=== PATIENT | female | born 1995 | race Caucasian/White ===

== ENCOUNTER 2016-04-21 04:32 | Inpatient (IN) | payer OTHER ==
[~2016-04-21] VITALS: Ht 149.9 cm; Wt 78.2 kg
[2016-04-21] MEDS ORDERED: PRENTAB26 PO (04:54)
[2016-04-21 04:58] VITALS: Ht 149.9 cm; Wt 78.2 kg
[2016-04-21] MEDS ORDERED: LACTATED RINGER'S 1000ML 1,000 ML IV PRN (05:20)
[2016-04-21 05:49] LABS: HEMATOCRIT 35.6 % (37-47); MEAN CELL VOLUME 90.6 fL (80-100); MEAN CORPUSCULAR HGB CONC 34.3 g/dl (32-36); MEAN PLATELET VOLUME 10.2 fL (7.4-10.4); PLATELET COUNT 156 K/uL (130-400); RED BLOOD COUNT 3.93 M/uL (4.2-5.4); WHITE BLOOD COUNT 8.23 K/uL (4.8-10.8)
[2016-04-21] MEDS ORDERED: BUPIVACAINE 0.25% 30 ML VIAL ONE (10:24)
[2016-04-21] MEDS ORDERED: EpHEDrine SULFATE INJ 50 MG/ML AMP ONE (10:24)
[2016-04-21] MEDS ORDERED: FENTANYL 2MCG/ML ROPIV 1.25MG/ML 100ML BAG EPI ONE (10:25)
[2016-04-21] MEDS ORDERED: FENTANYL CITRATE INJ 50 MCG/1 ML 2 ML VIAL ONE (10:26)
[2016-04-21] MEDS: LACTATED RINGER'S 1000ML 1,000 ML IV SCH ×3 (10:27→20:39)
[2016-04-21] MEDS ORDERED: NALOXONE HCL INJ 1 MG in SODIUM CHLORIDE 0.9% 1000ML 1,000 ML IV PRN (12:07)
[2016-04-21] MEDS ORDERED: LACTATED RINGER'S 1000ML 500 ML IV PRN ×2 (12:07→16:15)
[2016-04-21] MEDS ORDERED: DiphenhydrAMINE HCL 50 MG/ML VIAL IV PRN (12:15)
[2016-04-21] MEDS ORDERED: NALOXONE HCL INJ 0.4 MG/1 ML VIAL/CARP IV PRN (12:15)
[2016-04-21] MEDS ORDERED: EpHEDrine SULFATE INJ 50 MG/ML AMP IV PRN (12:15)
[2016-04-21] MEDS ORDERED: ONDANSETRON INJ 2 MG/ML 2 ML VIAL IV PRN (12:15)
[2016-04-21] MEDS ORDERED: NALBUPHINE HCL INJ 10 MG/ML AMP IV PRN (12:15)
[2016-04-21] MEDS ORDERED: OXYTOCIN 30 UNITS/500ML NSS IV PRN (16:15)
[2016-04-21] MEDS: FENTANYL 2MCG/ML ROPIV 1.25MG/ML 100ML BAG EPI PRN ×2 (18:54→19:51)
[2016-04-22] VITALS (16 sets, daily range): BP systolic 94–104; BP diastolic 61–66; PULSE 85–119; TEMP 36.6–37.5; O2SAT 96–100
[2016-04-22] MEDS: AMPICILLIN IV 2,000 MG in SODIUM CHLOR 0.9% AD-VAN 100ML 100 ML IV SCH ×4 (00:15→17:40)
[2016-04-22] MEDS: LACTATED RINGER'S 1000ML 1,000 ML IV SCH (00:26)
[2016-04-22] MEDS ORDERED: GENTAMICIN CONSULT ACTIVE PRN (01:15)
[2016-04-22] MEDS ORDERED: CITRIC ACID/SODIUM CITRATE 15 ML UDC ONE (01:16)
[2016-04-22] MEDS ORDERED: CEFAZOLIN IV 2,000 MG in DEXTROSE 5% 50ML 50 ML IV STA (01:27)
[2016-04-22] MEDS ORDERED: LIDOCAINE/EPINEPHRINE 2% 1:200,000 20 ML SDV ONE (01:41)
[2016-04-22] MEDS ORDERED: MoRPHine SULFATE PF 1 MG/ML 10 ML AMP/VIAL ONE (01:54)
[2016-04-22] MEDS ORDERED: OXYTOCIN INJ 10 UNITS/ML VIAL ONE (01:54)
[2016-04-22] MEDS ORDERED: ONDANSETRON INJ 2 MG/ML 2 ML VIAL ONE (02:19)
[2016-04-22] MEDS ORDERED: PHENYLEPHRINE 100MCG/ML 5ML SYR ONE (02:20)
[2016-04-22] MEDS ORDERED: LACTATED RINGER'S 1000ML 500 ML IV PRN (03:04)
[2016-04-22] MEDS ORDERED: LACTATED RINGER'S 1000ML 1,000 ML IV SCH (03:04)
[2016-04-22] MEDS ORDERED: NALOXONE HCL INJ 0.08 MG in SYRINGE 1.8 ML IV PRN (03:04)
[2016-04-22] MEDS ORDERED: SODIUM CHLORIDE 0.9% 1000ML 1,000 ML IV PRN (03:04)
[2016-04-22] MEDS ORDERED: NALOXONE HCL INJ 1 MG in SODIUM CHLORIDE 0.9% 1000ML 1,000 ML IV PRN (03:04)
--- NOTE | 2016-04-22 03:04 | Anesthesia Procedure Note ---
Anesthesia Epidural Removal Nt Date & Time Apr 22, 2016 at 03:03 Vital Signs Pain Intensity: 0.0 Notes Mental Status: alert / awake / arousable, participated in evaluation Nausea / Vomiting: adequately controlled Pain: adequately controlled Airway Patency, RR, SpO2: stable & adequate BP & HR: stable & adequate Hydration State: stable & adequate Neuraxial Anesthesia: was administered, sensory block is resolving Anesthetic Complications: no major complications apparent, pt satisfied with anesthetic care Epidural: removed without complications, with tip intact
[2016-04-22] MEDS ORDERED: ONDANSETRON INJ 2 MG/ML 2 ML VIAL IV PRN ×2 (03:15→20:20)
[2016-04-22] MEDS ORDERED: NALOXONE HCL 0.4 MG/1 ML VIAL/CARP IV PRN (03:15)
[2016-04-22] MEDS ORDERED: MAGNESIUM HYDROXIDE SUSP 30 ML UDC PO PRN (03:15)
[2016-04-22] MEDS ORDERED: LANOLIN OINT EXT PRN ×2 (03:15)
[2016-04-22] MEDS ORDERED: ACETAMINOPHEN IV 100 ML IV PRN (03:15)
[2016-04-22] MEDS ORDERED: EpHEDrine SULFATE INJ 50 MG/ML AMP IV PRN (03:15)
[2016-04-22] MEDS ORDERED: NO NARCOTICS OR SEDATIVES SCH (03:15)
[2016-04-22] MEDS ORDERED: NALBUPHINE HCL INJ 10 MG/ML AMP IV PRN (03:15)
[2016-04-22] MEDS ORDERED: HYDROCORTISONE ACETATE 25 MG SUPP PR PRN (03:15)
[2016-04-22] MEDS ORDERED: MoRPHine SULFATE PF 1 MG/ML 10 ML AMP/VIAL EPI PRN (03:15)
[2016-04-22] MEDS ORDERED: BENZOCAINE 20% AER SPR 82.5 GM CAN EXT PRN (03:15)
[2016-04-22] MEDS ORDERED: AMPICILLIN IV 2,000 MG in SODIUM CHLOR 0.9% AD-VAN 100ML 100 ML IV SCH (03:15)
[2016-04-22] MEDS ORDERED: MoRPHine SULFATE 2 MG/ML CARP IV PRN (03:15)
[2016-04-22] MEDS ORDERED: SENNA 8.6 MG TAB PO PRN (03:15)
[2016-04-22] MEDS ORDERED: DiphenhydrAMINE HCL 50 MG/ML VIAL IV PRN ×2 (03:15→20:20)
[2016-04-22] MEDS ORDERED: SUPERCREAM 0.870 % 15GM JAR EXT PRN (03:15)
[2016-04-22] MEDS ORDERED: ACETAMINOPHEN 1000 MG/100 ML IV IV ONE (03:44)
[2016-04-22] MEDS ORDERED: NURSING VERBAL MED ORDER ONE ×2 (04:45→16:30)
[2016-04-22] MEDS ORDERED: MISOPROSTOL 200 MCG TAB PR ONE (04:45)
[2016-04-22] MEDS: GENTAMICIN IV SCH ×3 (04:47→19:55)
[2016-04-22] MEDS: DEXTROSE 5% IV SCH ×3 (04:47→19:55)
[2016-04-22] MEDS: OXYTOCIN INJ 20 UNITS in LACTATED RINGER'S 1000ML 1,000 ML IV SCH ×2 (05:19→14:05)
[2016-04-22] MEDS ORDERED: GENTAMICIN INJ 120 MG in DEXTROSE 5% 100ML 100 ML IV SCH (06:00)
[2016-04-22] MEDS: CLINDAMYCIN IV 900 MG in DEXTROSE 5% ADD-VANTAGE 100ML 100 ML IV SCH ×3 (06:30→22:04)
[2016-04-22 07:02] LABS: HEMATOCRIT 28.2 % (37-47)
--- NOTE | 2016-04-22 07:07 | HISTORY & PHYSICAL EXAMINATION ---
DATE OF ADMISSION: 04/21/2016 HISTORY OF PRESENT ILLNESS: The patient is a 21-year-old, G1, P0, due date 04/17/2016 making her 40 weeks' and 4 days. The patient presented to labor and delivery with possible rupture of membranes on 04/20/2016 at about noon. The patient reported having occasional trickling, but was not sure. She, however, presented to labor and delivery after midnight. Today, she felt the leaking was getting worse. On arrival to labor and delivery she had no shortness of breath, no chills, no fever, no gross rupture of membranes. AmniSure, however, was performed and was found to be positive. The patient was examined by a nurse and found to be 3 cm, 50% effaced, and -2. Decision was made to admit the patient because of a positive AmniSure. heart tracing was category 2. COURSE: Has been unremarkable except for history of chlamydia which was treated with azithromycin. Test of cure on 11/13/2015 was negative. LABORATORIES: Blood type is A positive, antibody negative, rubella immune, GBS negative. PAST MEDICAL HISTORY: The patient has a history of PCOS. PAST SURGICAL HISTORY: None. SOCIAL HISTORY: The patient denied tobacco, drug or alcohol use. ALLERGIES: THE PATIENT IS ALLERGIC TO IBUPROFEN. FAMILY HISTORY: Noncontributory. ASSESSMENT AND PLAN: A 21-year-old G1, P0 with suspected rupture of membranes on 04/20/2016 around noon. Pelvic exam, however, showed patient still had bulging bag . Because of patient's category 2 Tracing and suspected polyhydramnios the decision is made to do artificial rupture of membranes, This was done successfully. Anticipate vaginal delivery. KENYATTA
[2016-04-22] MEDS ORDERED: MISOPROSTOL 200 MCG TAB ONE (07:14)
[2016-04-22] MEDS: DOCUSATE SODIUM 100 MG CAP PO SCH ×2 (07:54→19:56)
[2016-04-22] MEDS: PRENATAL VITAMIN TAB PO SCH (07:55)
[2016-04-22 08:48] LABS: CREATININE 0.66 mg/dl (0.60-1.20)
[2016-04-22] MEDS: SIMETHICONE 80 MG CHEW PO SCH ×4 (08:48→19:56)
--- NOTE | 2016-04-22 10:13 | Pharmacy Progress Note ---
Pharmacy Antibiotic Consult Date of Service: Apr 22, 2016. Pharmacy Dosing Scope Pharmacy is consulted to initiate gentamicin IV dosing therapy, order appropriate labs and adjust drug dose/frequency. Subjective The patient is a 21 year old female admitted on Apr 21, 2016 at 05:22. Objective Height (Feet): 4 Height (Inches): 11.00 Weight (Kilograms): 78.250 Lab Results (24hrs): Laboratory Tests Test 04/22/16 06:51 Creatinine 0.66 mg/dl Micro Results: Item Value Date Time Blood Culture Received 04/22/16324 Blood Pending Blood Culture Received 04/22/16324 Blood Pending Assessment & Plan ASSESSMENT: * Patient is a 21 year-old female who had delivered an today and was diagnosed with chorioamnionitis. * Pharmacy was consulted to dose the gentamicin IV therapy. * Patient is also on clindamycin 900mg IV q8h and ampicillin 2g q6h IV, per physician management. * Goal trough for gentamicin is 0.5-1mcg/ml and goal peak is 4-5mcg/ml. * Calculated half-life to be ~7hrs and Vd to be 0.25L/kg. * BCx2 are pending in the computer. PLAN: GENTAMICIN: * Patient received a loading dose of 90mg IV q8h of gentamicin (~2mg/kg). * Will get a peak level on 04/23 @6am and a trough level on 04/23 @11:30am. * Once levels come back, will adjust dose and interval appropriately. Pharmacy will continue to follow and will adjust dose/frequency as necessary. Thank you
--- NOTE | 2016-04-22 10:20 | OPERATIVE REPORT ---
DATE OF OPERATION: 04/21/2016 DELIVERY NOTE PROCEDURE: Delivery through section. INDICATIONS FOR SURGERY: 1. Chorioamnionitis. 2. Failure to progress. 3. tachycardia. POSTOPERATIVE DIAGNOSES: Same. SURGEON: Samuel Marie MD. INDEPENDENT INSURANCE ADJUSTER: Savita Tejada RN. PROCEDURE: Primary section. ANESTHESIA: Epidural. FINDINGS: Live in occiput anterior presentation with foul smell and discharge, suspected to be chorio. The uterus, adnexa appeared grossly normal. There was no nuchal cord. IV FLUIDS: 750 mL BLOOD LOSS: 700 mL URINE OUTPUT: 300 mL clear urine at the end of the procedure. COMPLICATIONS: None. DRAINS: Stephens catheter. PATHOLOGY: Placenta cultures, placenta and cord gas. PROCEDURE IN DETAIL: The patient was taken to the operating room where she was prepped and draped in normal sterile fashion. A timeout was called. A Pfannenstiel incision was made with a scalpel from the skin to the fascia. Fascia was incised in the midline and extended laterally on both sides. The fascia was sharply dissected off the rectus abdominus muscle. The peritoneum was identified and entered sharply. Once inside the abdomen, an Iam retractor was placed in the abdomen for retraction. Vesicouterine peritoneum was sharply dissected off the lower segment of the uterus. A transverse incision was made on the uterus and extended laterally on both sides using bandage scissors. Infant's head was delivered. Cord was clamped and cut, handed over to the awaiting fur finisher tailor. Other findings of the abdomen are as dictated above. The placenta was manually removed. The uterus was exteriorized and cleared off all clots and debris. The uterus was closed in 2 layers using 0 Vicryl. The first closure was in locking fashion, second closure was in a running fashion. Copious amount of irrigation was used to irrigate the abdomen. The uterus was returned into the abdominal cavity. Peritoneum closed in a running fashion. A [id number] was used to reapproximate the rectus abdominus muscle. The fascia was closed in a running fashion using Vicryl stitch. All instruments were removed from the abdomen prior to this closure and accounted for x2. The subcutaneous space was reapproximated using 2-0 plain and skin was closed with 4-0 Monocryl. All instruments were removed from the abdomen and accounted for x2 prior to the above-mentioned closures. Baby and mother are doing well in recovery. I attest to the content of the Intraoperative Record and any orders documented therein. Any exceptio ns are noted below.
[2016-04-22] MEDS ORDERED: PROMETHAZINE HCL INJ 25 MG in SODIUM CHLORIDE 0.9% 50ML 50 ML IV PRN (20:20)
[2016-04-22] MEDS ORDERED: DC INTRASPINAL MORPHINE SCH (20:20)
[2016-04-22] MEDS: OXYCODONE/ACETAMINOPHEN 5-325 TAB PO PRN (21:12)
[2016-04-23] MEDS: AMPICILLIN IV 2,000 MG in SODIUM CHLOR 0.9% AD-VAN 100ML 100 ML IV SCH ×4 (01:04→17:45)
[2016-04-23] MEDS: OXYCODONE/ACETAMINOPHEN 5-325 TAB PO PRN ×5 (01:14→21:52)
[2016-04-23 03:15] VITALS: BP 102/68; PULSE 106; TEMP 36.8
[2016-04-23] MEDS: DEXTROSE 5% IV SCH ×2 (03:59→12:17)
[2016-04-23] MEDS: GENTAMICIN IV SCH ×2 (03:59→12:17)
[2016-04-23] MEDS: CLINDAMYCIN IV 900 MG in DEXTROSE 5% ADD-VANTAGE 100ML 100 ML IV SCH ×3 (06:17→23:30)
[2016-04-23 06:52] LABS: BASO % 0.1 %; BASO ABS # 0.01 K/uL (0-0.2); COMPLETE YES; EOS % 0.4 %; HEMATOCRIT 26.1 % (37-47); IG% 0.3 %; LYMPH % 6.8 %; LYMPH ABS # 0.84 K/uL (1.2-3.4); MEAN CELL VOLUME 90.3 fL (80-100); MEAN CORPUSCULAR HEMOGLOBIN 31.5 pg (25-34); MEAN CORPUSCULAR HGB CONC 34.9 g/dl (32-36); MEAN PLATELET VOLUME 9.9 fL (7.4-10.4); MONO % 5.4 %; PLATELET COUNT 136 K/uL (130-400); RED BLOOD COUNT 2.89 M/uL (4.2-5.4)
[2016-04-23 07:20] LABS: CREATININE 0.46 mg/dl (0.60-1.20)
[2016-04-23] MEDS: DOCUSATE SODIUM 100 MG CAP PO SCH ×2 (08:02→19:52)
[2016-04-23] MEDS: SIMETHICONE 80 MG CHEW PO SCH ×4 (08:02→19:52)
[2016-04-23] MEDS: PRENATAL VITAMIN TAB PO SCH (08:02)
[2016-04-23 08:05] VITALS: BP 101/67; PULSE 90; TEMP 36.4; O2SAT 100
[2016-04-23] MEDS ORDERED: GENTAMICIN TROUGH ONE (11:30)
[2016-04-23 12:05] VITALS: BP 98/65; PULSE 94; TEMP 36.6
--- NOTE | 2016-04-23 14:15 | Pharmacy Progress Note ---
Pharmacy Antibiotic Prog Note Date of Service: Apr 23, 2016. Subjective: The patient is currently receiving Gentamicin 90 mg IV every 8 hours. The patient is currently on day # 2 of Gentamicin IV therapy. Objective: Height (Feet): 4 Height (Inches): 11.00 Weight (Kilograms): 78.250 Levels: Item Value Date Time Gentamicin Level Peak 2.9 mcg/ml L 04/23/16 0618 Gentamicin Level Trough < 0.20 mcg/ml 04/23/16 1140 Lab Results (24hrs): Laboratory Tests Test 04/23/16 06:18 Creatinine 0.46 mg/dl White Blood Count 12.30 K/uL Red Blood Count 2.89 M/uL Hemoglobin 9.1 g/dL Hematocrit 26.1 % Mean Corpuscular Volume 90.3 fL Mean Corpuscular Hemoglobin 31.5 pg Mean Corpuscular Hemoglobin Concent 34.9 g/dl Platelet Count 136 K/uL Mean Platelet Volume 9.9 fL Neutrophils (%) (Auto) 87.0 % Lymphocytes (%) (Auto) 6.8 % Monocytes (%) (Auto) 5.4 % Eosinophils (%) (Auto) 0.4 % Basophils (%) (Auto) 0.1 % Neutrophils # (Auto) 10.69 K/uL Lymphocytes # (Auto) 0.84 K/uL Monocytes # (Auto) 0.67 K/uL Eosinophils # (Auto) 0.05 K/uL Basophils # (Auto) 0.01 K/uL Micro Results: Item Value Date Time Blood Culture - Preliminary Resulted 04/22/16 0325 Blood NO GROWTH TO DATE. Blood Culture - Preliminary Resulted 04/22/16 0325 Blood NO GROWTH TO DATE. Assessment & Plan: Assessment * 21 y/o F with chorioamnionitis on empiric IV Gentamicin, Clindamycin (not a consult), and Ampicillin (not a consult). * Goal Gentamicin trough level ~1 mcg/mL * Trough level on 04/23 @ 1140 (appropriately drawn) of <0.2 mcg/mL is subtherapeutic. Peak level on 04/23 @ 0618 (appropriately drawn) of 2.9 mcg/mL is also subtherapeutic (goal peak 4-5 mcg/mL). Patient has great renal function that appears to be at baseline. She is clearing the drug rapidly. Will increase the dose by ~30% and also shorten the dosing interval to target a higher trough level. Plan * Increase Gentamicin to 120mg (~2.1mg/kg based on adjusted BW) IV q6, started earlier due to low peak and trough levels and also given severity of indication for antibiotics * Trough level ordered for 04/24 @ 0930 (prior to the 4th dose and therefore should be reflective of steady state) Pharmacy will continue to follow and will adjust dose/frequency as necessary. Thank you
[2016-04-23] MEDS: GENTAMICIN INJ 120 MG in DEXTROSE 5% 100ML 100 ML IV SCH ×2 (16:06→21:34)
[2016-04-23] MEDS ORDERED: ACETAMINOPHEN IV 100 ML IV SCH (16:30)
[2016-04-23 17:00] VITALS: BP 98/61; PULSE 98; TEMP 36.6
[2016-04-23 19:50] VITALS: BP 108/65; PULSE 112; TEMP 36.5; O2SAT 100
[2016-04-23] MEDS ORDERED: BISACODYL 5 MG TABEC PO ONE (22:00)
[2016-04-24] MEDS: AMPICILLIN IV 2,000 MG in SODIUM CHLOR 0.9% AD-VAN 100ML 100 ML IV SCH ×2 (00:36→05:54)
[2016-04-24] MEDS ORDERED: BISACODYL 10 MG SUPP PR PRN (03:15)
[2016-04-24] MEDS: OXYCODONE/ACETAMINOPHEN 5-325 TAB PO PRN ×5 (03:28→19:26)
[2016-04-24] MEDS: GENTAMICIN INJ 120 MG in DEXTROSE 5% 100ML 100 ML IV SCH (03:55)
[2016-04-24 04:30] VITALS: BP 96/62; PULSE 103; TEMP 37.1; O2SAT 98
[2016-04-24] MEDS: CLINDAMYCIN IV 900 MG in DEXTROSE 5% ADD-VANTAGE 100ML 100 ML IV SCH (06:31)
[2016-04-24 06:37] LABS: HEMATOCRIT 24.2 % (37-47)
[2016-04-24 07:30] VITALS: BP 104/69; PULSE 90; TEMP 36.6; O2SAT 99
[2016-04-24 07:49] LABS: CREATININE 0.57 mg/dl (0.60-1.20)
[2016-04-24] MEDS: SIMETHICONE 80 MG CHEW PO SCH ×4 (09:11→19:27)
[2016-04-24] MEDS: PRENATAL VITAMIN TAB PO SCH (09:11)
[2016-04-24] MEDS: DOCUSATE SODIUM 100 MG CAP PO SCH ×2 (09:11→19:27)
[2016-04-24] MEDS ORDERED: GENTAMICIN TROUGH ONE (09:30)
--- NOTE | 2016-04-24 09:44 | OB/GYN Progress Note ---
SWATCHER Progress Note Date of Service Apr 24, 2016. Subjective conversation w/ patient, physical exam Ambulation: ambulating normally Voiding: no voiding problems Passing Gas: Yes Diet Tolerance: Regular Diet Lochia: Small Feeding Type: Breast Feeding Pain: 5/10 Notes: Doing well. Ambulating without difficulty. Pain well controlled. Tolerating regular diet, +flatus, -BM. Lochia decreasing. Objective Vital Signs Date Time Temp Pulse Resp B/P Pulse Ox O2 Delivery O2 Flow Rate FiO2 04/24/16 07:30 36.6 90 18 104/69 04/24/16 07:30 99 Room Air 04/24/16 04:30 98 Room Air 04/24/16 04:30 37.1 103 18 96/62 04/23/16 19:50 36.5 112 18 108/65 04/23/16 19:50 100 Room Air 04/23/16 17:00 Room Air 04/23/16 17:00 36.6 98 18 98/61 04/23/16 12:05 36.6 94 18 98/65 Physical Exam General Appearance: WELL-APPEARING Respiratory/Chest: chest non-tender, lungs clear Cardiovascular: regular rate, rhythm Abdomen: normal bowel sounds, soft Fundus: Firm Incision Description: Clean, Dry & Intact Extremities: normal range of motion, non-tender, no calf tenderness Laboratory Results Last 24 Hours Test 04/23/16 11:40 04/24/16 06:09 04/24/16 06:55 Gentamicin Level Trough < 0.20 mcg/ml Hemoglobin 8.4 g/dL Hematocrit 24.2 % Creatinine 0.57 mg/dl Est Creatinine Clear Calc Drug Dose 139.9 ml/min Estimated GFR () > 150.0 Estimated GFR (Non- 131.6 Assessment and Plan Post-Op Day Number: 2 Continue Routine Care: -D/C IV antibiotics, been afebrile >48 hours -Continue routine postop care -Hemoglobin 8.4 this AM, repeat this afternoon. -Anticipate d/c home tomorrow.
[2016-04-24] MEDS ORDERED: NURSING VERBAL MED ORDER ONE (10:00)
[2016-04-24 15:30] VITALS: BP 103/68; PULSE 108; TEMP 36.9
[2016-04-25] VITALS: BP 107/82; PULSE 62; TEMP 36.6; O2SAT 99
[2016-04-25] MEDS: OXYCODONE/ACETAMINOPHEN 5-325 TAB PO PRN ×4 (02:55→17:44)
[2016-04-25] MEDS: PRENATAL VITAMIN TAB PO SCH (07:42)
[2016-04-25] MEDS: DOCUSATE SODIUM 100 MG CAP PO SCH ×2 (07:42→20:40)
[2016-04-25] MEDS: SIMETHICONE 80 MG CHEW PO SCH ×4 (07:44→20:40)
[2016-04-25 08:49] LABS: CREATININE 0.51 mg/dl (0.60-1.20)
[2016-04-25 09:00] VITALS: BP 102/72; PULSE 106; TEMP 36.8; O2SAT 97
--- NOTE | 2016-04-25 11:14 | Surgery Progress Note ---
Surgery Progress Note Date of Service Apr 25, 2016. Subjective Post OP Day: 3 + ambulating, + diet, + feeling well, + flatus, + pain controlled Objective Vital Signs: Date Time Temp Pulse Resp B/P Pulse Ox O2 Delivery O2 Flow Rate FiO2 04/25/16 09:00 97 Room Air 04/25/16 00:00 99 Room Air 04/25/16 00:00 36.6 62 18 107/82 04/24/16 15:30 Room Air 04/24/16 15:30 36.9 108 20 103/68 General Appearance: WD/WN, no apparent distress Abdomen: non tender, non distended, soft Incision(s): clean, dry, intact Laboratory Results: Results Past 24 Hours Test 04/24/16 11:56 04/25/16 08:10 Range/Units Hemoglobin 7.7 12.0-16.0 g/dL Hematocrit 22.0 37-47 % Creatinine 0.51 0.60-1.20 mg/dl Est Creatinine Clear Calc Drug Dose 156.4 ml/min Estimated GFR () > 150.0 Estimated GFR (Non- 136.5 Assessment & Plan regular diet POD#3 tent d/c in AM
[2016-04-25 11:45] VITALS: TEMP 36.8
[2016-04-25 15:15] VITALS: BP 114/75; PULSE 106; TEMP 36.8; O2SAT 98
[2016-04-25 23:25] VITALS: BP 102/69; PULSE 98; TEMP 36.5
[2016-04-26] MEDS: OXYCODONE/ACETAMINOPHEN 5-325 TAB PO PRN ×3 (00:06→13:52)
[2016-04-26] MEDS: PRENATAL VITAMIN TAB PO SCH (07:29)
[2016-04-26] MEDS: DOCUSATE SODIUM 100 MG CAP PO SCH (07:29)
[2016-04-26] MEDS: SIMETHICONE 80 MG CHEW PO SCH ×2 (07:29→12:45)
[2016-04-26 08:30] VITALS: BP 102/69; PULSE 97; TEMP 36.9; O2SAT 98
[2016-04-26] MEDS ORDERED: MISC-696 (13:21)
[2016-04-26] MEDS ORDERED: OXYC-57 PO (13:21)
--- NOTE | 2016-04-26 13:23 | Discharge Instructions ---
Discharge Instructions Admission Reason for Admission: LABOR Discharge Discharge Diagnosis / Problem: Primary section Discharge Goals Goal(s): Routine recovery after Activity Recommendations Activity Limitations: per Instructions/Follow-up section . Instructions / Follow-Up Instructions / Follow-Up ACTIVITY RECOMMENDATIONS: * Gradual return to full activity over the next 2-3 weeks. * No lifting - nothing heavier than baby over the next 2-3 weeks. * Do not engage in vigorous exercise, sexual activity or sports until cleared by your physician. * Do not drive or operate any motorized equipment until cleared by your physician. * You may shower/bathe daily. BREAST CARE: If you are not breast feeding: * Wear a supportive bra 24 hours a day for one to two weeks. * Avoid stimulating your breasts and nipples as much as possible during the first few weeks after delivery. * When taking a shower, have the warm water hit your back, not breasts. * When your breasts feel full, apply ice packs. Usually three to four times a day helps ease the discomfort. * Take a mild pain medication (Tylenol/Motrin) when you are uncomfortable. If breast feeding: * Use breast milk to lubricate nipples. Lansinoh cream may be used for sore nipples. You do not need to remove cream prior to breast feeding. If using a different brand of cream, check the label for directions regarding removal of cream prior to nursing. * Wear a supportive bra. * If having problems with breasts or breast feeding, call a customer consultant or your health care provider. OVER THE COUNTER MEDICATION: * For discomfort or pain, you may use Acetaminophen (Tylenol), Ibuprofen (Advil ), or Naproxen (Aleve) following the package directions. * For constipation you may use Colace following the package directions. SPECIAL CARE INSTRUCTIONS: When you are discharged from the hospital, it is important for you to follow the instructions listed below: * During the first week at home, you should be able to care for yourself and your baby. In addition, the usual light household activities are encouraged. * Limit your activities to the way you feel. Do not try to clean the house or move furniture. Be sensible. * If you actively engage in sports and have done so up until the time of your delivery, you may resume these activities as soon as you feel able. This may take up to one month or even longer. Use good judgment. * Continue to take your vitamins for at least six weeks after the of your baby. * Your diet need not be limited unless you were on a special diet before your delivery. Breast-feeding mothers need around 2500 calories per day and at least 64-80 ounces of fluid per day (8 to 10 glasses). * You should eat foods from the four major food groups. Crash diets or fad diets are to be avoided. Eating lean meats, fresh fruits and vegetables, low-fat dairy products, high fiber foods and a regular exercise program, will help you get back to your pre- weight without putting your health at risk. * Constipation is sometimes a problem after delivery. Take a mild laxative as needed. If breast feeding, Milk of Magnesia is acceptable to use. You may use a suppository or Fleets enema if no episiotomy. * A daily shower or tub bath is suggested. Be sure to thoroughly and gently dry the perineum. * A bloody vaginal discharge will usually continue until around four weeks post . A small amount of bleeding may continue for as long as six weeks. Vaginal discharge changes from the bright red bleeding after delivery to pink then brownish and finally yellowish-pink before becoming white and disappearing. * Bleeding may increase with activity. Your first period may come in 4-8 weeks. If you are breast feeding, your period may be delayed even longer. * [place] (sex) can begin whenever both you and your partner feel comfortable and do not have any form of genital infection. It is recommended that you wait at least six weeks for internal and external healing to occur. If you have questions, please talk to your health care practitioner. A condom should be used to prevent infection and . * Foreplay, gentle intercourse and lubrication is very important the first several times to prevent pain. A water-based lubricant such as K-Y jelly or Astroglide may be used. * Tampons and/or Douching should be avoided until after six weeks check-up. * If you have RH negative blood and your baby is RH positive, you will receive RHOGAM by injection prior to discharge. The nurse will give you a card to keep with you that has the date and place that you received RHOGAM after delivery. * During your care, you had a Rubella screen done to check for the presence of rubella antibodies in your blood. If your test was negative, you will receive a Rubella vaccine prior to discharge. This vaccine may cause a fever, soreness at the injection site and flu-like symptoms. If these symptoms persist, notify your health care practitioner. is not advised for three months after a Rubella vaccine. * Verbalizes understanding of car seat law as reviewed with patient nursing. * Car Seat hand-out given and reviewed with patient by nursing. * Shaken baby information reviewed with patient by nursing. Call you doctor if: * Heavy bleeding (saturating several pads an hour) or passing clots the size of your fist. * A fever >101 degrees F (38.3 degrees C) on two occasions four hours apart and /or chills. * Unusual pain in the pelvic or vaginal areas. Pain should improve each day . * Call the doctor for any increased redness, drainage or swelling around the incision and any pain unrelieved by prescribed pain medication. * Any signs or symptoms of phlebitis (possible blood clots forming in the veins ): leg pain, warm, red or swollen area on leg. * "Baby Blues" lasting longer than two weeks. If you have any questions or concerns, call your health care practitioner at . FOLLOW-UP VISIT: * Incision check (staple removal) in 1 week. Please call doctor's office at to set up appointment. * Please call the office at to schedule a 6 week examination. It is important you keep this appointment. * It is important for you to make arrangements for either yearly or twice yearly check-ups thereafter. Current Hospital Diet Patient's current hospital diet: Regular OB Diet Discharge Diet Recommended Diet: Regular OB Diet Procedures Procedures Performed: LOWER TRANSVERSE UTERINE INCISION. PRIMARY CAESAREAN SECTION Pending Studies Studies pending at discharge: no Medical Emergencies . Who to Call and When: Medical Emergencies: If at any time you feel your situation is an emergency, please call [phone] immediately. . Non-Emergent Contact Non-Emergency issues call your: Primary Care Provider, Brick Catcher . . "Provider Documentation" section prepared by Joaquín Valenzuela. VTE Core Measure Inpt VTE Proph given/why not?: Treatment not indicated
[2016-04-26 14:52] VITALS: BP_DIAS 69; PULSE 97; TEMP 36.9
--- NOTE | 2016-05-15 07:28 | DISCHARGE SUMMARY ---
CHIEF COMPLAINT: Term premature rupture of membranes. HISTORY OF PRESENT ILLNESS: This is a 21-year-old G1, P0, due date of 04/17/2016 making her 40 weeks and 4 days on 04/21/2016. The patient presented to labor and delivery with prolonged rupture of membranes. This was confirmed. She was admitted at 3 cm, 50% effaced, and -2. The patient required Pitocin augmentation for progression of her labor. After a prolonged labor the patient began to experience a fever. Diagnosis at this point was chorioamnionitis. There was a failure to progress as well as tachycardia. The patient therefore went on to have a section and delivered a live infant female weighing 3850 grams. Apgars were 6, 5, and 8 at 1, 5 and 10 minutes. For details of the pediatric information as well as details of surgery can be found in the respective records. Postop patient was placed on antibiotics for 24 hours. The patient did well, met all milestones in recovery. On postop day #1, the patient had her Stephens removed. She was able to ambulate, tolerate p.o. food and meds. She continued to progress. On postop day 2 and 3 she did as well. Her diet and activity, continued to improve. The patient was discharged home on 04/26/2016 in stable condition. PAST MEDICAL HISTORY: The patient has history of PCOS. PAST SURGICAL HISTORY: The patient had no surgical history. SOCIAL HISTORY: The patient denied tobacco, drug or alcohol use. ALLERGIES: THE PATIENT REPORTS ALLERGY TO IBUPROFEN. FAMILY HISTORY: Noncontributory. REVIEW OF SYSTEMS: Negative except as dictated in the HPI. VITAL SIGNS: On 04/26/2015 showed temperature 36.9, pulse of 97, respiration of 18, blood pressure 102/69. LABS: On 04/24/2016 showed hemoglobin of 7.7 and hematocrit of 22.0. PHYSICAL EXAMINATION: GENERAL: Well-developed, well-nourished white female in no acute distress. HEART: S1, S2, regular rhythm and rate. LUNGS: Clear to auscultation bilaterally. ABDOMEN: Nontender, nondistended. Positive bowel sounds. Incision clean, dry and intact. EXTREMITIES: No cyanosis, clubbing or edema. CONDITION ON DISCHARGE: Stable. OPERATION: Primary section. DISCHARGE DIAGNOSES: 1. Primary section. 2. Chorioamnionitis after prolonged rupture of membranes. PLAN ON DISCHARGE: The patient is discharged home in stable condition with instructions regarding activity, diet, followup appointment and medications.
== END 2016-04-26 15:15 | disposition home or self-care (01) | DRG 766 ==
LOC: C.LD 04:32 → C.OPB 04:32 → C.LD 05:22 → C.OPB 05:22 → C.OBG 04-22 09:52
PROVIDERS: ADMIT Obstetrics & Gynecology; ATTEND Obstetrics & Gynecology
PROC: 10D00Z1 Extraction of Products of Conception, Low, Open Approach (ICD-10-PCS; principal; 2016-04-22 01:15)
DX: O41.1230 Chorioamnionitis, third trimester, not applicable or unspecified (principal); O62.0 Primary inadequate contractions; O76 Abnormality in fetal heart rate and rhythm complicating labor and delivery; Z37.0 Single live birth; Z3A.40 40 weeks gestation of pregnancy

== ENCOUNTER 2016-09-17 17:02 | Emergency (ER) | payer OTHER ==
[~2016-09-17] VITALS: Ht 149.9 cm; Wt 66.4 kg
[~2016-09-17 17:02] MED LIST: MISC-696; OXYC-57 PO; PRENTAB26 PO
[2016-09-17 17:04] VITALS: BP 116/73; PULSE 105; TEMP 36.8; O2SAT 98; Ht 149.9 cm; Wt 66.4 kg
[2016-09-17] MEDS ORDERED: CEFD300C2 PO (17:20)
--- NOTE | 2016-09-18 00:43 | EMERGENCY ROOM VISIT NOTE ---
History First contact with patient: 17:10 Chief Complaint: EAR PAIN Stated Complaint: EAR PAIN,MUFFED HEARING IN L,SOME IN R History of Present Illness The patient is a 21 year old female who presents to the Emergency Room with complaints of bilateral ear discomfort and decreased hearing acuity. The patient reports that she has had an upper respiratory infection for the past week. She started to notice left ear discomfort this morning. She denies any drainage from the ears. She denies any significant history of recurrent otitis media. She denies any fevers or chills, and rates her discomfort a 7 out of 10. The patient reports that she is currently breast-feeding, and is refusing any analgesics. Review of Systems 10 system review was performed and was negative except for pertinent positives and negatives as indicated in history of present illness Past Medical/Surgical History Medical Problems: (1) Bronchitis (2) Mastitis, obstetric, antepartum Surgical Problems: (1) History of delivery Family History FH: diabetes mellitus Social History Smoking Status: Former Smoker Alcohol Use: occasionally Marital Status: single Housing Status: lives with significant other Occupation Status: employed Current/Historical Medications Scheduled Cefdinir (Omnicef), 300 MG PO Q12H Allergies Coded Allergies: Ibuprofen (Verified Allergy, Mild, HIVES, 09/17/16) Physical Exam Vital Signs Date Time Temp Pulse Resp B/P (MAP) Pulse Ox O2 Delivery O2 Flow Rate FiO2 09/17/16 17:04 36.8 105 16 116/73 98 Room Air Pain Rating (0-10): 1.0 Physical Exam CONSTITUTIONAL: Healthy and well nourished. Alert and oriented X 3 with positive affect. HEENT: Normocephalic, atraumatic. Pupils equal, round and reactive. No facial edema noted. No rhinorrhea. Examination shows bilateral TM erythema. Bony landmarks and light reflexes are absent bilaterally. No external auditory canal erythema or drainage from the ears. No tenderness to palpation of the mastoids, frontal or maxillary sinuses. OROPHARYNX: Minimal posterior pharyngeal erythema without tonsillar hypertrophy or exudates. NECK: Full active range of motion without discomfort. No nuchal rigidity. LYMPHATICS: No cervical chain adenopathy noted. RESPIRATORY: Clear to auscultation bilaterally with no wheezing, crackles, rhonchi or stridor. CARDIOVASCULAR: Regular rate and rhythm with no murmurs, rubs or gallops. MUSCULOSKELETAL: Full range of motion of all joints without discomfort. INTEGUMENTARY: No rash or other significant dermatologic conditions noted. NEUROLOGIC: No focal neurologic deficits noted. Medical Decision & Procedures ED Course Patient history and physical exam were performed. Nurse's notes were reviewed. Vital signs were reviewed and were normal. Clinical exam shows bilateral otitis media. The patient was provided a prescription for Omnicef. She was encouraged to take Tylenol as needed for pain. She has a history of allergic reaction to ibuprofen. She was encouraged to follow-up with her PCP for recheck in the next week, sooner with any worsening pain or drainage from the ears. The patient was happy with plan of care, voiced understanding of all discharge instructions, and rated her pain a 6 out of 10 at the time of discharge. Medical Decision Impression Primary Impression: Bilateral otitis media Departure Information Dispostion Home / Self-Care Condition GOOD Prescriptions Cefdinir (OMNICEF) 300 Mg Cap 300 MG PO Q12H for 10 Days, #20 CAP Prov: Arpit Collins PA 09/17/16 Referrals Alyssa Mcghee (PCP) No Doctor, Assigned Forms HOME CARE DOCUMENTATION FORM, IMPORTANT VISIT INFORMATION Patient Instructions My [facility] Additional Instructions Complete all Omnicef antibiotics as prescribed. Tylenol 1000 mg every 6-8 hours as needed for pain. Follow-up with your family doctor for recheck in one week, sooner with any worsening pain, fever or drainage from the ears. Problem Qualifiers Primary Impression: Bilateral otitis media Otitis media type: unspecified Chronicity: unspecified Qualified Codes: H66.93 - Otitis media, unspecified, bilateral
== END 2016-09-17 17:30 | disposition home or self-care (01) ==
LOC: C.EDB 17:03 → C.EDD 17:30
DX: H66.93 Otitis media, unspecified, bilateral (principal); Z87.891 Personal history of nicotine dependence; Z88.6 Allergy status to analgesic agent; Z83.3 Family history of diabetes mellitus

== ENCOUNTER 2016-12-11 12:52 | Emergency (ER) | payer OTHER ==
[~2016-12-11] VITALS: Ht 149.9 cm; Wt 70.3 kg
[2016-12-11 12:55] VITALS: TEMP 36.8; Ht 149.9 cm; Wt 70.3 kg
[2016-12-11 13:44] LABS: URINE APPEARANCE CLEAR (CLEAR); URINE BILIRUBIN NEG (NEG); URINE COLOR DK YELLOW; URINE NITRITE NEG (NEG); URINE PH 5.5 (4.5-7.5); URINE SPECIFIC GRAVITY 1.031 (1.000-1.030); UROBILINOGEN NEG (NEG); ZZUR CULT IF INDIC CLEAN CATCH NO
[2016-12-11] MEDS ORDERED: BCPILLS PO (13:46)
--- NOTE | 2016-12-11 13:56 | DIAGNOSTIC IMAGING REPORT ---
L-SPINE MIN 4 VIEWS ROUTINE CLINICAL HISTORY: Mid low back pain COMPARISON: None FINDINGS: Alignment of the lumbar spine is anatomic. Vertebral body heights are maintained. There is no fracture or suspicious lesion. Disc spaces are preserved. IMPRESSION: Normal lumbar spine radiographs. Electronically signed by: Johnathon Long M.D. 12/11/2016 1:55 PM Dictated Date/Time: 12/11/2016 1:51 PM
[2016-12-11 13:57] LABS: MANUAL MICROSCOPIC REQUIRED? NO; REVIEW REQ? NO
[2016-12-11] MEDS ORDERED: CYCL10TA6 PO (14:18)
[2016-12-11] MEDS ORDERED: ULT/50 PO (14:18)
[2016-12-11] MEDS ORDERED: METH4PAK PO (14:18)
[2016-12-11 14:38] VITALS: BP 117/66; PULSE 99; O2SAT 98
--- NOTE | 2016-12-11 15:38 | EMERGENCY ROOM VISIT NOTE ---
History First contact with patient: 13:05 Chief Complaint: BACK PAIN Stated Complaint: BACK PAIN WITH BENDING History of Present Illness The patient is a 21 year old female who presents to the Emergency Room with complaints of low back pain for the past one day. The patient states that her discomfort worsens with bending over and twisting. She feels like the pain is worse in the area where she had an epidural 7 months ago for delivery of her child. The patient has not had fever or chills. No numbness or paresthesias. She has been eating, drinking, and using the bathroom as normal. She does not have known injury, and states that her symptoms worsened while she was in the shower today. She has not had significant back injury in the past and considers herself otherwise usually healthy. She is on control and does not believe that she is . She has not taken anything [id number] for her symptoms. She rates her discomfort an 8/10. Review of Systems More than 10 systems were reviewed and otherwise negative with the exception of history of present illness. Past Medical/Surgical History Medical Problems: (1) Bronchitis (2) Mastitis, obstetric, antepartum Surgical Problems: (1) History of delivery Family History FH: diabetes mellitus Social History Smoking Status: Former Smoker Alcohol Use: occasionally Marital Status: single Housing Status: lives with significant other Occupation Status: employed Current/Historical Medications Scheduled Control Pills ( Control Pills), 1 TAB PO DAILY Cyclobenzaprine Hcl (Flexeril), 10 MG PO TID Methylprednisolone (Medrol Dosepak), 1 PKT PO DAILY Tramadol Hcl (Ultram), 50 MG PO Q8H Physical Exam Vital Signs Date Time Temp Pulse Resp B/P (MAP) Pulse Ox O2 Delivery O2 Flow Rate FiO2 12/11/16 14:38 99 18 117/66 98 12/11/16 12:55 36.8 82 18 124/74 98 Room Air Physical Exam VITALS: Vitals are noted on the nurse's note and reviewed by myself. Vital signs stable. GENERAL: Well-developed, well-nourished, white female, who is in no acute distress and resting comfortably. Patient is cooperative with the examination. NECK: Supple without nuchal rigidity. No lymphadenopathy. No thyromegaly. Cervical spine is nontender. HEART: Regular rate and rhythm without murmurs gallops or rubs. LUNGS: Clear to auscultation bilaterally without wheezes, rales or rhonchi. No retractions or accessory muscle use. MUSCULOSKELETAL: No obvious paravertebral spasm. No tenderness of the thoracic spine. There is palpable tenderness of the upper to mid lumbar spine without step-off. No palpable mass or erythema appreciated. No evidence of infection. No SI joint tenderness. Negative straight leg raise bilaterally. Neurovascular status is intact to the distal lower extremities. NEURO: Patient was alert and oriented to person place and time. CN II through XII grossly intact. Medical Decision & Procedures ER Provider Diagnostic Interpretation: L-SPINE MIN 4 VIEWS ROUTINE CLINICAL HISTORY: Mid low back pain COMPARISON: None FINDINGS: Alignment of the lumbar spine is anatomic. Vertebral body heights are maintained. There is no fracture or suspicious lesion. Disc spaces are preserved. IMPRESSION: Normal lumbar spine radiographs Laboratory Results Test 12/11/16 13:20 Urine Color DK YELLOW Urine Appearance CLEAR (CLEAR) Urine pH 5.5 (4.5-7.5) Urine Specific [place] 1.031 (1.000-1.030) Urine Protein NEG (NEG) Urine Glucose (UA) NEG (NEG) Urine Ketones TRACE (NEG) Urine Occult Blood NEG (NEG) Urine Nitrite NEG (NEG) Urine Bilirubin NEG (NEG) Urine Urobilinogen NEG (NEG) Urine Leukocyte Esterase NEG (NEG) Urine Test NEG (NEG) ED Course Physical exam and history were performed. Nursing notes, EMR, and Medication List were personally reviewed. Patient appears to have low back pain worsening over the course of today. She does not have injury or trauma. Her discomfort is reproducible with palpation and positional changes. She does not have evidence of infection or significant neurologic compromise. I did collect a urine and elected to perform x-rays. The patient's urinalysis does not show evidence of infection. X-ray is as above and is without significant acute findings. Overall the patient appears well and stable for discharge home. I suspect that her symptoms are related to a musculoskeletal etiology. She is allergic to NSAIDs, and I will provide her a Medrol Dosepak for inflammation. I will additionally give her short courses of tramadol and Flexeril. I did explain the importance of taking this medication at home and not drinking or driving while on this medication. I did recommend that she follow with her primary care physician in the next week for recheck. She was certainly invited back to the ER with any new, worsening, or concerning symptoms. She was pleased with plan of care and voiced understanding. The chart was completed utilizing [employer] Speech Voice Recognition Software. Grammatical errors, random word insertions, pronoun errors, and incomplete sentences are an occasional consequence of this system due to software limitations, ambient noise, and hardware issues. Any formal questions or concerns about the content, text, or information contained within the body of this dictation should be directly addressed to the provider for clarification. . Medical Decision Differential diagnosis: Etiologies such as musculoskeletal, disc herniation, fracture, aortic disease, metastatic disease, cord compression, discitis, infection, renal colic, gastrointestinal, acute exacerbation of chronic back pain, sciatica, cauda equina, as well as others were entertained. [place] Drug Monitoring Program Search Results: patient reviewed within database, no issues identified Medication Reconcilliation Current Medication List: was personally reviewed by me Blood Pressure Screening Patient's blood pressure: Normal blood pressure Impression Primary Impression: Low back pain Departure Information Prescriptions Cyclobenzaprine Hcl (FLEXERIL) 10 Mg Tab 10 MG PO TID for 5 Days, #15 TAB Prov: Francisco J Segura PA-C 12/11/16 Methylprednisolone (MEDROL DOSEPAK) 4 Mg [place] 1 PKT PO DAILY, #1 PKT Prov: Francisco J Segura PA-C 12/11/16 Tramadol Hcl (ULTRAM) 50 Mg Tab 50 MG PO Q8H for Pain for 3 Days, #9 TAB Prov: Francisco J Segura PA-C 12/11/16 Referrals No Doctor, Assigned (PCP) Patient Instructions [facility] Problem Qualifiers Primary Impression: Low back pain Chronicity: acute Back pain laterality: midline Sciatica presence: without sciatica Qualified Codes: M54.5 - Low back pain
== END 2016-12-11 14:32 | disposition home or self-care (01) ==
LOC: C.EDB 12:54
DX: M54.5 Low back pain (principal); Z83.3 Family history of diabetes mellitus; Z87.891 Personal history of nicotine dependence; Z79.3 Long term (current) use of hormonal contraceptives

== ENCOUNTER 2017-05-23 03:30 | Emergency (ER) | payer OTHER ==
[~2017-05-23] VITALS: Ht 149.9 cm; Wt 74.9 kg
[~2017-05-23 03:30] MED LIST changes: +BCPILLS PO; -MISC-696; -OXYC-57 PO; -PRENTAB26 PO
[2017-05-23 03:34] VITALS: Ht 149.9 cm; Wt 74.9 kg
[2017-05-23] MEDS ORDERED: KETOROLAC TROMETHAMINE 60 MG/2 ML VIAL IM STA (04:26)
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
[2017-05-23 06:37] VITALS: BP 138/76; PULSE 73; TEMP 37; O2SAT 97
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
== END 2017-05-23 06:38 | disposition home or self-care (01) ==
LOC: C.EDB 03:31 → C.EDA 06:38
DX: S16.1XXA Strain of muscle, fascia and tendon at neck level, initial encounter (principal); S00.511A Abrasion of lip, initial encounter; T74.11XA Adult physical abuse, confirmed, initial encounter; Z79.3 Long term (current) use of hormonal contraceptives; Z83.3 Family history of diabetes mellitus; Z88.6 Allergy status to analgesic agent

== ENCOUNTER 2020-01-20 07:47 | Inpatient (IN) ==
[2020-01-20] MEDS ORDERED: OXYTOCIN 30 UNITS/500 ML BAG IV PRN ×2 (09:46→11:29)
--- NOTE | 2020-01-20 09:46 | Obstetrical Progress Note ---
Date of Service January 20, 2020 Assessment & Plan Admission and Anticipated Discharge Date Admission Date: January 20, 2020 Subjective Met pt and spouse Discussed PNC Pt is s/p c/sec doing TOLAC discussed uterus rapture rate of 0.5% and other associated complications pt understands her risk is increased because we are inducing her and may have to use Pitocin Bedside sono ; VT FHR; CAT! ctx .minimal VE Ft/50%/post EFW; 8lbs by Patience Will do cervidil vaginally Results & Data ([facility]) Vital Signs (Past 12 Hours) Vital Signs Temp Pulse Resp BP 01/20/20 09:21 18 01/20/20 08:30 18 01/20/20 08:15 36.8 C 18 01/20/20 07:54 36.8 C 18 01/20/20 07:52 96 H 120/68
[2020-01-20] MEDS ORDERED: DINOPROSTONE 10 MG INSERT PV ONE (10:00)
[2020-01-20 10:26] LABS: Hematocrit (blood only) 33.9 % (37-47); Hemoglobin 11.7 g/dL (12.0-16.0); Mean Corpuscular Hemoglobin 31.2 pg (25-34); Mean Corpuscular Volume 90.4 fL (80-100); Platelet Count 145 K/uL (130-400); RDW Coefficient of Variation 13.7 % (11.5-14.5); RDW Standard Deviation 44.9 fL (36.4-46.3); Red Blood Count 3.75 M/uL (4.2-5.4); White Blood Count 7.56 K/uL (4.8-10.8)
[2020-01-20 10:29] LABS: Mean Corpuscular Hgb Conc 34.5 g/dL (32-36)
--- NOTE | 2020-01-20 11:16 | Obstetrical Progress Note ---
Date of Service January 20, 2020 Assessment & Plan Admission and Anticipated Discharge Date Admission Date: January 20, 2020 Subjective Induction for FHR; CAT1 Ctx; Minimal Cervidil not used as discussed in earlier plan loo bulb with 30 cc saline placed. Pt tolerated procedure well Results & Data ([facility]) Vital Signs (Past 12 Hours) Vital Signs Temp Pulse Resp BP 01/20/20 09:21 18 01/20/20 08:30 18 01/20/20 08:15 36.8 C 18 01/20/20 07:54 36.8 C 18 01/20/20 07:52 96 H 120/68
[2020-01-20] MEDS: LACTATED RINGER'S 1,000 ML IV PRN ×2 (11:46→19:11)
[2020-01-20] MEDS ORDERED: CITRIC ACID/SODIUM CITRATE 15 ML UDC ONE (19:44)
--- NOTE | 2020-01-20 19:58 | Obstetrical Progress Note ---
Date of Service January 20, 2020 Assessment & Plan Admission and Anticipated Discharge Date Admission Date: January 20, 2020 Subjective Pt doing well FHR; CAT1' Ctx Minimal Pt no longer wants to proceed with TOLAC consent obtained Results & Data ([facility]) Vital Signs (Past 12 Hours) Vital Signs Temp Pulse Resp BP Pulse Ox 01/20/20 19:51 88 98 01/20/20 19:46 87 98 01/20/20 19:42 84 91 01/20/20 19:41 86 100 01/20/20 19:36 92 H 98 01/20/20 19:31 87 100 01/20/20 18:30 18 01/20/20 17:30 18 01/20/20 17:00 18 01/20/20 16:00 18 01/20/20 15:30 36.9 C 18 01/20/20 15:28 82 107/61 01/20/20 15:05 18 01/20/20 14:09 18 01/20/20 12:00 36.8 C 18 01/20/20 11:59 73 97/52 L 01/20/20 11:15 18 01/20/20 09:21 18 01/20/20 08:30 18 01/20/20 08:15 36.8 C 18
[2020-01-20] MEDS ORDERED: ceFAZolin 2000MG 2,000 MG/15 ML SYR IV ONE (20:00)
[2020-01-20] MEDS ORDERED: CITRIC ACID/SODIUM CITRATE 15 ML UDC PO ONE (20:00)
[2020-01-20] MEDS ORDERED: LACTATED RINGER'S 1,000 ML IV SCH ×3 (20:00→22:15)
[2020-01-20] MEDS ORDERED: MoRPHine SULFATE PF 1 MG/ML 10 ML AMP/VIAL ONE (20:28)
--- NOTE | 2020-01-20 20:32 | Anesthesiology Consultation ---
Date of Service January 20, 2020 Assessment & Plan (1) Encounter for pre-operative examination: Chart Review Chart Review: Acceptable Risk for Surgery History Surgery Operation Date: 01/20/20 20:00 Proposed Procedures p Section in LD(Bilateral) - Samuel Marie MD Height/Weight Height: 4 ft 11 in Weight: 84.368 kg Allergies Allergy/AdvReac Type Severity Reaction Status Date / Time No Known Allergies Allergy Verified 01/20/20 11:23 Medications Home Medications Medication Instructions Recorded Confirmed Last Taken calcium carbonate [Tums] 200 mg PO TID 01/20/20 01/20/20 01/19/20 prenat.vits,tete,[id number]-[id number]-hkcvl 1 tab PO DAILY 01/20/20 01/20/20 01/17/20 [ #2] Active Medications Generic Name Dose Route Start Last Admin Trade Name Freq PRN Reason Stop Dose Admin Lactated Ringer's 1,000 mls @ 125 mls/hr 01/20/20 09:46 01/20/20 19:11 Lr IV 01/22/20 09:45 999 mls/hr .Q8H PRN Administration L&D Protocol Protocol Oxytocin 30 units in 500 mls @ 0 mls/hr 01/20/20 11:29 01/20/20 19:09 Pitocin IV 01/22/20 11:28 0 units/hr .Q0M PRN 0 mls/hr cervical ripening Titration Protocol 0 UNITS/HR Lactated Ringer's 1,000 mls @ 125 mls/hr 01/20/20 20:55 01/20/20 20:21 Lr IV 02/19/20 20:54 125 mls/hr .Q8H SCARLET Administration Past Medical History Medical History Bilateral otitis media Bronchitis Low back pain Mastitis, obstetric, antepartum Past Family History Family History Other No known health problems Past Surgical History Surgical History History of delivery Social History Smoking Status: Former smoker Do You Dip or Chew Tobacco: No Hx Alcohol Use: No Hx Substance Use: No substance use type: does not use Physical Exam Vital Signs Last Vital Signs Temp 36.8 C 01/20/20 20:03 Pulse 80 01/20/20 20:31 Resp 18 01/20/20 20:03 BP 116/66 01/20/20 20:03 Pulse Ox 99 01/20/20 20:31 Testing Laboratory Results 01/20/20 10:05 01/20/20 08:59 POC Glucose 127 H
[2020-01-20] MEDS ORDERED: NALOXONE HCL 0.4 MG/1 ML VIAL/CARP IV PRN (21:04)
[2020-01-20] MEDS ORDERED: ONDANSETRON INJ 2 MG/ML 2 ML VIAL IV PRN (21:04)
[2020-01-20] MEDS ORDERED: NALOXONE HCL 0.08 MG in SYRINGE 1.8 ML IV PRN (21:04)
[2020-01-20] MEDS ORDERED: ePHEDrine sulfate 50 MG/ML AMP IV PRN (21:04)
[2020-01-20] MEDS ORDERED: LACTATED RINGER'S 500 ML IV PRN (21:04)
[2020-01-20] MEDS ORDERED: MEPERIDINE HCL 25 MG/ML CARP/VIAL IV PRN (21:04)
[2020-01-20] MEDS ORDERED: diphenhydrAMINE 50 MG/ML VIAL IV PRN (21:04)
[2020-01-20] MEDS ORDERED: PROMETHAZINE HCL 12.5 MG in SODIUM CHLORIDE 0.9% 50 ML IV PRN (21:04)
[2020-01-20] MEDS ORDERED: NALOXONE HCL 1 MG in SODIUM CHLORIDE 0.9% 1000ML 1,000 ML IV PRN (21:04)
[2020-01-20] MEDS ORDERED: MoRPHine SULFATE PF 1 MG/ML 10 ML AMP/VIAL INT SPINAL ONE (21:04)
[2020-01-20] MEDS ORDERED: ONDANSETRON INJ 2 MG/ML 2 ML VIAL ONE (21:12)
[2020-01-20] MEDS ORDERED: PROPOFOL IV EMULSION 10 MG/ML 20 ML VIAL IV ONE (21:12)
[2020-01-20] MEDS ORDERED: ePHEDrine sulfate 50 MG/ML SYR ONE (21:12)
[2020-01-20] MEDS ORDERED: OXYTOCIN 10 UNITS/ML VIAL ONE ×2 (21:12→21:23)
[2020-01-20] MEDS ORDERED: METOCLOPRAMIDE HCL INJ 5 MG/ML 2 ML VIAL ONE (21:12)
[2020-01-20] MEDS ORDERED: PHENYLEPHRINE 100MCG/ML 5ML SYR ONE (21:12)
[2020-01-20] MEDS ORDERED: NO NARCOTICS OR SEDATIVES SCH (21:15)
[2020-01-20] MEDS ORDERED: SODIUM CHLORIDE 0.9% 1000ML 1,000 ML IV SCH (21:15)
[2020-01-20] MEDS ORDERED: miSOPROStoL 200 MCG TAB ONE (21:53)
[2020-01-20] MEDS ORDERED: SENNA 8.6 MG TAB PO PRN (22:01)
[2020-01-20] MEDS ORDERED: SUPERCREAM 0.870% 15 GM JAR EXT PRN (22:01)
[2020-01-20] MEDS ORDERED: DIPHTHERIA/TETANUS/PERTUSSIS 0.5 ML SYR/VIAL IM ONE (22:01)
[2020-01-20] MEDS ORDERED: HYDROCORTISONE ACETATE 25 MG SUPP PR PRN (22:01)
[2020-01-20] MEDS ORDERED: BENZOCAINE 20% AER SPR 82.5 GM CAN EXT PRN (22:01)
[2020-01-20] MEDS ORDERED: MAGNESIUM HYDROXIDE SUSP 30 ML UDC PO PRN (22:01)
--- NOTE | 2020-01-20 22:07 | Post Operative Brief Note ---
Immediate Post Op Note v1 Date of Surgery January 20, 2020 Pre & Post Diagnosis Operation Date: 01/20/20 20:00 <No data on this case meets the specified criteria> I identified the patient and participated in the time-out.: Yes Procedure Operation Date: 01/20/20 20:00 <No data on this case meets the specified criteria> Surgeon Samuel Marie MD Light Adjuster alberto rao Estimated Blood Loss 700 Findings Consistent with Post-Op Diagnosis
[2020-01-20] MEDS: KETOROLAC 30 MG/ML VIAL IV PRN (23:20)
[2020-01-20] MEDS ORDERED: OXYTOCIN 10 UNITS/ML VIAL IM ONE (23:23)
[2020-01-20] MEDS ORDERED: miSOPROStoL 200 MCG TAB PR ONE (23:24)
[2020-01-21] MEDS: OXYTOCIN 20 UNITS in LACTATED RINGER'S 1,000 ML IV SCH ×2 (00:12→08:56)
--- NOTE | 2020-01-21 00:30 | Anesthesiology Progress Note ---
Date of Service January 21, 2020 Anesthesia Post Procedure Vital Signs Vital Signs: Temp Pulse Resp BP Pulse Ox 01/21/20 00:14 73 100 01/21/20 00:12 76 107/52 L 01/21/20 00:09 83 100 01/21/20 00:04 78 100 01/20/20 23:59 82 100 01/20/20 23:54 78 100 01/20/20 23:49 78 100 01/20/20 23:44 88 100 01/20/20 23:42 78 100/58 L 01/20/20 23:39 79 100 01/20/20 23:34 80 100 01/20/20 23:29 78 100 01/20/20 23:24 73 100 01/20/20 23:19 86 100 01/20/20 23:14 88 98 01/20/20 23:11 82 117/56 L 01/20/20 23:09 92 H 99 01/20/20 23:06 87 90 01/20/20 23:04 84 98 01/20/20 23:02 72 112/56 L 01/20/20 22:59 77 100 01/20/20 22:58 74 84 L 01/20/20 22:54 73 100 01/20/20 22:52 75 110/73 01/20/20 22:49 76 95 01/20/20 22:46 70 88/53 L 01/20/20 22:44 85 99 01/20/20 22:43 91 H 91 01/20/20 22:42 85 90/45 L 01/20/20 22:39 82 100 01/20/20 22:34 73 100 01/20/20 22:32 80 118/56 L 01/20/20 22:29 78 100 01/20/20 22:26 75 98/53 L 01/20/20 22:24 72 100 01/20/20 22:19 79 100 01/20/20 22:17 80 88 L 01/20/20 22:14 82 76 L 01/20/20 22:12 75 90 01/20/20 22:11 68 108/53 L 01/20/20 22:09 72 100 01/20/20 22:07 65 216/160 H 01/20/20 22:04 71 100 01/20/20 20:41 88 99 01/20/20 20:36 85 99 10/08/20 20:31 80 99 01/20/20 20:26 86 100 01/20/20 20:21 96 H 97 01/20/20 20:16 79 99 01/20/20 20:11 85 99 01/20/20 20:06 81 99 01/20/20 20:03 36.8 C 85 18 116/66 01/20/20 20:01 87 100 01/20/20 19:56 77 98 01/20/20 19:51 88 98 01/20/20 19:46 87 98 01/20/20 19:42 84 91 01/20/20 19:41 86 100 01/20/20 19:36 92 H 98 01/20/20 19:31 87 100 01/20/20 18:30 18 01/20/20 17:30 18 01/20/20 17:00 18 01/20/20 16:00 18 01/20/20 15:30 36.9 C 18 01/20/20 15:28 82 107/61 01/20/20 15:05 18 01/20/20 14:09 18 01/20/20 12:00 36.8 C 18 01/20/20 11:59 73 97/52 L 01/20/20 11:15 18 01/20/20 09:21 18 01/20/20 08:30 18 01/20/20 08:15 36.8 C 18 01/20/20 07:54 36.8 C 18 01/20/20 07:52 96 H 120/68 Pain Intensity Lower Abdomen: Pain Intensity: 4 Transfer of Care Handoff Completed per policy Notes Mental Status: alert / awake / arousable Patient Amnestic to Procedure: Yes Nausea / Vomiting: adequately controlled Pain: adequately controlled Airway Patency, RR, SpO2: stable & adequate BP & HR: stable & adequate Hydration State: stable & adequate Neuraxial Anesthesia: was administered and sensory block is resolving Anesthetic Complications: no major complications apparent
[2020-01-21] MEDS ORDERED: ACETAMINOPHEN 1000 MG/100 ML IV IV ONE (00:37)
--- NOTE | 2020-01-21 04:00 | Operative Report (OR) ---
DATE OF OPERATION: 01/20/2020 INDICATION FOR PROCEDURE: This is a 25-year-old G2, P2 who is at term. The patient initially had wanted to attempt . The patient went on to dilate it to 2-3 cm, following this the patient decided not to proceed any longer with . She therefore underwent repeat section. PREOPERATIVE DIAGNOSES: 1. at term. 2. Previous section. 3. The patient declined attempted . POSTOPERATIVE DIAGNOSES: 1. at term. 2. Previous section. 3. The patient declined attempted . PROCEDURE: Repeat section. ANESTHESIA: Spinal. ATTENDING ANESTHESIA: Dr. Houston. SURGEON: Samuel Marie MD FIRE RANGER: Nurse, Bridgette Collins. ESTIMATED BLOOD LOSS: 300 mL. IV FLUIDS: 2600 mL. URINE OUTPUT: 175 mL, clear urine at end of procedure. FINDINGS: A live infant in occiput presentation. There was no nuchal cord. The uterus and adnexa appears grossly normal. Abdominal pelvic exam is otherwise unremarkable. PATHOLOGY: Placenta and cord blood. COMPLICATIONS: None. DRAINS: Stephens catheter. DISPOSITION: Stable to recovery room. DESCRIPTION OF PROCEDURE: The patient was taken to the operating room where she was prepped and draped in normal sterile fashion after timeout was called. A transverse incision was made through the old scar with a scalpel and carried down to the fascia. Fascia was incised in the midline and extended laterally on both sides. Fascia was grabbed with 2 Kochers superiorly and inferiorly and transected off the rectus abdominus muscle. Peritoneum was identified and entered sharply. Once inside the abdomen, the findings were as dictated above. An Iam retractor was placed in the abdomen for retraction. Vesicouterine peritoneum was sharply dissected off the lower segment of the uterus. Transverse incision was made on the lower segment of the uterus and extended laterally with bandage scissors. Amniotomy was performed. Infant was delivered. Cord clamped and cut and handed over to the pediatric team. Infant's weight and Apgars in the pediatric records. Placenta was manually removed. Uterus was exteriorized and cleared of all clots and debris. Uterine incision was closed in 2 layers with Vicryl suture in a locking fashion. There was good hemostasis post repair. Uterus was returned to abdominal cavity and copious amount of irrigation used to irrigate the abdomen. Once again, hemostasis was obtained. Peritoneum was reapproximated with plain suture. Three [id number] is used to approximate the rectus abdominus muscle. Fascia was closed in a running fashion using Vicryl stitch. SubQ space was reapproximated using plain suture and skin was closed with melissa. All instruments were removed from the abdomen and accounted for x2 including sponges, needles and retractors. Baby and mother are doing well in recovery. I attest to the content of the Intraoperative Record and any orders documented therein. Any exception s are noted below.
[2020-01-21 06:55] LABS: Eosinophils # (auto) 0.01 K/uL (0-0.5); Eosinophils % (auto) 0.1 %; Hematocrit (blood only) 27.3 % (37-47); Hemoglobin 9.3 g/dL (12.0-16.0); Immature Granulocytes # (auto) 0.02 K/uL (0.00-0.02); Immature Granulocytes % (auto) 0.2 %; Lymphocytes # (auto) 1.28 K/uL (1.2-3.4); Lymphocytes % (auto) 15.1 %; Mean Corpuscular Hemoglobin 31.1 pg (25-34); Mean Corpuscular Hgb Conc 34.1 g/dL (32-36); Mean Corpuscular Volume 91.3 fL (80-100); Mean Platelet Volume 9.8 fL (7.4-10.4); Monocytes # (auto) 0.73 K/uL (0.11-0.59); Monocytes % (auto) 8.6 %; Neutrophils # (auto) 6.44 K/uL (1.4-6.5); Platelet Count 112 K/uL (130-400); RDW Coefficient of Variation 13.8 % (11.5-14.5); RDW Standard Deviation 45.2 fL (36.4-46.3); Red Blood Count 2.99 M/uL (4.2-5.4); White Blood Count 8.48 K/uL (4.8-10.8)
[2020-01-21] MEDS ORDERED: PRENATAL VITAMIN 1 TAB PO SCH (08:00)
[2020-01-21] MEDS: FERROUS SULFATE 325 MG TAB PO SCH (09:06)
[2020-01-21] MEDS: KETOROLAC 30 MG/ML VIAL IV PRN (09:06)
[2020-01-21] MEDS: SIMETHICONE 80 MG CHEW PO SCH ×4 (09:07→20:04)
[2020-01-21] MEDS: DOCUSATE SODIUM 100 MG CAP PO SCH ×2 (09:07→20:04)
--- NOTE | 2020-01-21 09:43 | Obstetrical Progress Note ---
Date of Service January 21, 2020 Assessment & Plan Admission and Anticipated Discharge Date Admission Date: January 20, 2020 Subjective POD#1 doing well still not out of bed Physical Exam Constitutional: WD/WN, vitals as above comfortable incision c/d/i non-tender neg Dahlia's no edema Results & Data ([facility]) Vital Signs (Past 12 Hours) Vital Signs Temp Pulse Pulse Resp BP BP Pulse Ox 01/21/20 05:30 18 98 01/21/20 04:25 37.0 C 78 18 105/62 100 01/21/20 03:50 37.1 C 88 18 104/65 99 01/21/20 02:45 83 18 108/61 98 01/21/20 01:45 84 18 100/63 100 01/21/20 00:14 73 100 01/21/20 00:12 76 107/52 L 01/21/20 00:10 36.6 C 18 01/21/20 00:09 83 100 01/21/20 00:04 78 100 01/20/20 23:59 82 100 01/20/20 23:54 78 100 01/20/20 23:49 78 100 01/20/20 23:44 88 100 01/20/20 23:42 78 100/58 L 01/20/20 23:40 18 01/20/20 23:39 79 100 01/20/20 23:34 80 100 01/20/20 23:29 78 100 01/20/20 23:24 73 100 01/20/20 23:19 86 100 01/20/20 23:14 88 98 01/20/20 23:11 82 117/56 L 01/20/20 23:10 16 01/20/20 23:09 92 H 99 01/20/20 23:06 87 90 01/20/20 23:04 84 98 01/20/20 23:02 72 112/56 L 01/20/20 23:00 18 01/20/20 22:59 77 100 01/20/20 22:58 74 84 L 01/20/20 22:54 73 100 01/20/20 22:52 75 110/73 01/20/20 22:50 18 01/20/20 22:49 76 95 01/20/20 22:46 70 88/53 L 01/20/20 22:44 85 99 01/20/20 22:43 91 H 91 01/20/20 22:42 85 90/45 L 01/20/20 22:40 18 01/20/20 22:39 82 100 01/20/20 22:34 73 100 01/20/20 22:32 80 118/56 L 01/20/20 22:30 16 01/20/20 22:29 78 100 01/20/20 22:26 75 98/53 L 01/20/20 22:24 72 100 01/20/20 22:20 16 01/20/20 22:19 79 100 01/20/20 22:17 80 88 L 01/20/20 22:14 82 76 L 01/20/20 22:12 75 90 01/20/20 22:11 68 108/53 L 01/20/20 22:10 36.5 C 18 01/20/20 22:09 72 100 01/20/20 22:07 65 216/160 H 01/20/20 22:04 71 100 Laboratory Results Laboratory Results - last 72 hr 01/20/20 01/20/20 01/21/20 08:59 10:05 06:34 WBC 7.56 8.48 RBC 3.75 L 2.99 L Hgb 11.7 L 9.3 L Hct 33.9 L 27.3 L MCV 90.4 91.3 MCH 31.2 31.1 MCHC 34.5 34.1 RDW Std Deviation 44.9 45.2 RDW Coeff of Jonelle 13.7 13.8 Plt Count 145 112 L MPV 10.0 9.8 Immature Gran % (Auto) 0.2 Neut % (Auto) 76.0 Lymph % (Auto) 15.1 Hitchcock % (Auto) 8.6 Eos % (Auto) 0.1 Baso % (Auto) 0.0 Neut # (Auto) 6.44 Lymph # (Auto) 1.28 Hitchcock # (Auto) 0.73 H Eos # (Auto) 0.01 Baso # (Auto) 0.00 Immature Gran # (Auto) 0.02 POC Glucose 127 H
[2020-01-21] MEDS ORDERED: ONDANSETRON INJ 2 MG/ML 2 ML VIAL IV PRN (15:04)
[2020-01-21] MEDS ORDERED: diphenhydrAMINE Capsule 25 MG CAP PO PRN (15:04)
[2020-01-21] MEDS ORDERED: DC INTRASPINAL MORPHINE ONE (15:04)
[2020-01-21] MEDS ORDERED: diphenhydrAMINE 50 MG/ML VIAL IV PRN (15:04)
[2020-01-21] MEDS ORDERED: oxyCODONE/ACETAMINOPHEN 5mg/325mg TAB PO PRN (15:04)
[2020-01-21] MEDS ORDERED: PROMETHAZINE HCL 25 MG in SODIUM CHLORIDE 0.9% 50 ML IV PRN (15:04)
[2020-01-21] MEDS: IBUPROFEN 600 MG TAB PO PRN ×2 (15:59→20:04)
[2020-01-21] MEDS ORDERED: bisacodyL 5 MG TABEC PO SCH (20:00)
[2020-01-22] MEDS: IBUPROFEN 600 MG TAB PO PRN ×3 (00:10→08:21)
[2020-01-22] MEDS ORDERED: ACETAMINOPHEN 325 MG TAB PO PRN (02:59)
[2020-01-22] MEDS ORDERED: ACETAMINOPHEN 325 MG TAB ONE (03:16)
[2020-01-22 06:52] LABS: Basophils # (auto) 0.01 K/uL (0-0.2); Basophils % (auto) 0.1 %; Eosinophils # (auto) 0.17 K/uL (0-0.5); Eosinophils % (auto) 2.3 %; Hematocrit (blood only) 29.3 % (37-47); Hemoglobin 9.3 g/dL (12.0-16.0); Immature Granulocytes # (auto) 0.01 K/uL (0.00-0.02); Immature Granulocytes % (auto) 0.1 %; Lymphocytes # (auto) 1.39 K/uL (1.2-3.4); Lymphocytes % (auto) 18.7 %; Mean Corpuscular Hemoglobin 29.2 pg (25-34); Mean Corpuscular Hgb Conc 31.7 g/dL (32-36); Mean Corpuscular Volume 92.1 fL (80-100); Mean Platelet Volume 9.8 fL (7.4-10.4); Monocytes # (auto) 0.53 K/uL (0.11-0.59); Monocytes % (auto) 7.1 %; Neutrophils # (auto) 5.31 K/uL (1.4-6.5); Neutrophils % (auto) 71.7 %; Platelet Count 158 K/uL (130-400); RDW Coefficient of Variation 13.9 % (11.5-14.5); RDW Standard Deviation 45.8 fL (36.4-46.3); Red Blood Count 3.18 M/uL (4.2-5.4); White Blood Count 7.42 K/uL (4.8-10.8)
[2020-01-22] MEDS: SIMETHICONE 80 MG CHEW PO SCH (08:21)
[2020-01-22] MEDS: FERROUS SULFATE 325 MG TAB PO SCH (08:21)
[2020-01-22] MEDS: DOCUSATE SODIUM 100 MG CAP PO SCH (08:21)
--- NOTE | 2020-01-22 08:39 | Obstetrical Progress Note ---
Date of Service January 22, 2020 Assessment & Plan Admission and Anticipated Discharge Date Admission Date: January 20, 2020 Physical Exam Physical Exam: abdomen soft and non tender incision is clean and dry no calf tenderness ambulating well vaginal bleeding scant hgb 9.3 Results & Data ([facility]) Vital Signs (Past 12 Hours) Vital Signs Temp Pulse Resp BP Pulse Ox 01/22/20 04:00 37.0 C 80 18 100/69 98 01/22/20 00:10 36.9 C 87 20 99/64 L 97
[2020-01-22] MEDS ORDERED: bisacodyL 10 MG SUPP PR PRN (22:01)
== END 2020-01-22 11:30 | disposition home or self-care (01) | DRG 788 ==
LOC: 4S1 07:47 → 4S2 01-21 01:28